=== PATIENT | male | born 1960 | race Caucasian/White ===

== ENCOUNTER 2016-12-08 07:03 | Emergency (ER) | payer BC ==
[2016-12-08] MEDS ORDERED: Albuterol/Ipratropium NEB.SOL* Albuterol 2.5 MG/Ipratropium 0.5 MG 3 ML INH ONE (07:38)
[2016-12-08] MEDS ORDERED: Albuterol HFA INHALER* 8 gm MDI INH ONE (07:38)
[2016-12-08] MEDS ORDERED: Albuterol 2.5 MG/3 ML NEB.SOL* (0.083%) ONE (07:55)
[2016-12-08] MEDS ORDERED: Ipratropium 0.5MG/2.5ML NEB* 0.5 MG/2.5 ML NEB.SOLN ONE (07:59)
[2016-12-08 09:00] VITALS: BP 123/78
--- NOTE | 2016-12-08 09:02 | RAD ---
INDICATION: Fever, cough and wheezing COMPARISON: Most recent chest xray is dated 07/31/07 TECHNIQUE: PA and lateral views of the chest were obtained. FINDINGS: The heart and mediastinum are normal in size and contour. There is persistent elevation of the left dylan-diaphragm, worse when compared to the most recent chest xray. There is mild adama-bronchial cuffing. Otherwise the lungs are grossly clear. There is no evidence of large pleural effusion. Visualized bones are normal for the patient's age. There is no radiographic evidence of free air beneath the diaphragm IMPRESSION: 1. Mild adama-bronchial cuffing can be seen with inflammatory lung disease. 2. Worsening elevation of the left hemidiaphragm relative to the 2007 chest xray.
--- NOTE | 2016-12-16 15:46 | UC ---
Josr Reeves Claudia, scribed for Diamond Bruce MD on 12/08/16 at 0734 . General HPI - HPI Summary HPI Summary: 56 year old male presents to the [facility] with multi-sx. Pt notes gradual onset of Sx for the past 1.5 weeks. Pt admits to sore throat today. Pt notes that he had a fever of about 99F and bad cough about a week ago but notes that the cough subsided about 2 -3 days ago. He denies ear ache. He notes that he lost his voice over the past 2 days which made him come in today. Pt also notes that his had the flu about 2 weeks ago. - History of Current Complaint Chief Complaint: UCRespiratory Stated Complaint: SORE THROAT,CONGEST,ACHES Hx Obtained From: Patient Onset/Duration: Gradual Onset Associated Signs & Symptoms: Positive: Other - Cough, Sore throat. Negative: Cough, Chest Pain, Fever - Allergy/Home Medications Allergies/Adverse Reactions: Allergies Allergy/AdvReac Type Severity Reaction Status Date / Time No Known Allergies Allergy Verified 06/01/16 07:22 PMH/Surg Hx/FS Hx/Imm Hx Previously Healthy: Yes Endocrine History Of: Denies: Diabetes, Thyroid Disease Cardiovascular History Of: Reports: Hypertension Denies: Cardiac Disorders Respiratory History Of: Denies: COPD, Asthma GI/ History Of: Denies: Ulcer - Surgical History Surgical History: Yes Surgery Procedure, Year, and Place: Multiple Leg , EYE SURGERY - Family History Known Family History: Positive: Cardiac Disease - father, at age 78, Diabetes - Father - Social History Occupation: Disabled Lives: With Family Alcohol Use: Occasionally Alcohol Amount: 2-3 max Substance Use Type: None Smoking Status (MU): Never Smoked Tobacco Household Exposure Type: Cigarettes - Immunization History Most Recent Influenza Vaccination: not recently Most Recent Tetanus Shot: unsure Review of Systems Constitutional: Other - No fever Skin: Negative Eyes: Negative ENT: Sore Throat Respiratory: Negative Cardiovascular: Negative Gastrointestinal: Negative Genitourinary: Negative Motor: Negative Neurovascular: Negative Musculoskeletal: Negative Neurological: Negative Psychological: Negative All Other Systems Reviewed And Are Negative: Yes Physical Exam Triage Information Reviewed: Yes Appearance: Well-Appearing - Not well-appearing, Well-Nourished Vital Signs: Initial Vital Signs Temp 98 F 12/08/16 07:08 Pulse 84 12/08/16 07:08 Resp 16 12/08/16 07:08 BP 130/82 12/08/16 07:08 Pulse Ox 98 12/08/16 07:08 Vital Signs Reviewed: Yes Eye Exam: Normal ENT Exam: Other - redness of the posterior pharynx with swelling of the uvula Neck exam: Normal Neck: Positive: Other: - No adenopathy appreciated Respiratory Exam: Normal, Other - Scattered expiratory wheezes Respiratory: Positive: Other: - No dyspena, no tachypnea, normal respiratory rate. Scattered expiratory wheezes throughout. Cardiovascular Exam: Normal Cardiovascular: Positive: RRR, No Murmur, Pulses Normal, Brisk Capillary Refill Abdominal Exam: Normal Abdomen Description: Positive: Nontender, No Organomegaly, Soft Bowel Sounds: Positive: Present Musculoskeletal Exam: Normal Musculoskeletal: Positive: Strength Intact Neurological Exam: Normal - Nonfocal, grossly intact Psychological Exam: Normal - Conversing easily and appropriately Diagnostics - Radiology CXR Xray Interpretation: Positive (See Comments) Radiology Interpretation Completed By: Radiologist Re-Evaluation - Re-Evaluation 1 Re-Evaluation Time: 08:45 Comment: Nurse went into pt room to tell pt that we are still awaiting a radiologist report on CXR and that the radiologist has been paged. 2 Re-Evaluation Time: 09:02 Comment: CXR results are dicussed with the pt. The pt is ready to be d/c home with follow-up instructions. Course/Dx - Course Course Of Treatment: No new problems in ccc, considered differential diagnoses. Feels better at d/c. see avs. reviewed need for f/u and to seek care if worse or new problems. - Differential Dx - Multi-Symptom Provider Diagnoses: Acute bronchitis with wheezing - Physician Notifications Discussed Patient Care With: Discussed results of CXR with Dr. Humphreys. Awaiting final dictation. Discharge - Discharge Plan Condition: Stable Disposition: HOME Prescriptions: Albuterol HFA INHALER* [Ventolin HFA Inhaler*] 1 - 2 puff INH Q6H PRN #1 mdi PRN Reason: Wheezing Azithromyxin ORTIZ (NF) [Z-Ortiz (Zithromax) 250 mg tabs #6] 2 tab PO .TODAY, THEN 1 DAILY #6 tab Patient Education Materials: Acute Bronchitis (ED), How to Use a Nebulizer (ED) , Wheezing (ED) Referrals: Onur Corbin MD [Primary Care Provider] - Additional Instructions: Follow up with Dr. Corbin - call tomorrow for appointment in the next 2 weeks. Please seek medical attention sooner for worse or new problems in the meantime. The documentation as recorded by the Josr lindsey Claudia accurately reflects the service I personally performed and the decisions made by me, Diamond Bruce MD.
== END 2016-12-08 09:10 | disposition home or self-care (01) ==
LOC: UCEAST 07:03
DX: J20.9 Acute bronchitis, unspecified (principal); Z77.22 Contact with and (suspected) exposure to environmental tobacco smoke (acute) (chronic)
CPT/HCPCS: 71020; 99213; A9270-GY; G0463; J7644

== ENCOUNTER 2017-07-16 14:13 | Emergency (ER) | payer BC ==
--- NOTE | 2017-07-16 14:32 | UC ---
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 - History of Current Complaint Stated Complaint: BACK PAIN Time Seen by Provider: 07/16/17 14:28 Hx Obtained From: Patient Onset/Duration: Sudden Onset Timing: Constant Severity Initially: Moderate Severity Currently: Moderate Pain Scale Used: 0-10 Numeric - 7 Character: Sharp Aggravating: Movement Alleviating: Rest Associated Signs And Symptoms: Positive: Negative - Risk Factors AAA Risk Factors: Negative TAD Risk Factors: Negative - Allergies/Home Medications Allergies/Adverse Reactions: Allergies Allergy/AdvReac Type Severity Reaction Status Date / Time No Known Allergies Allergy Verified 07/16/17 14:33 Home Medications: Home Medications Cyclobenzaprine TAB* [Flexeril 10 MG TAB*] 10 mg PO TID PRN 07/16/17 [History Confirmed 07/16/17] Naproxen [Naproxen 500 mg] 500 mg PO DAILY 07/16/17 [History Confirmed 07/16/17] PMH/Surg Hx/FS Hx/Imm Hx Previously Healthy: Yes - Surgical History Surgical History: Yes Surgery Procedure, Year, and Place: Multiple Leg , EYE SURGERY - Family History Known Family History: Positive: Cardiac Disease - father, at age 78, Diabetes - Father Family History: NON CONTRIBUTORY - Social History Alcohol Use: Occasionally Alcohol Amount: 2-3 max Substance Use Type: None Smoking Status (MU): Never Smoked Tobacco Household Exposure Type: Cigarettes - Immunization History Most Recent Influenza Vaccination: not recently Most Recent Tetanus Shot: unsure Review of Systems Constitutional: Negative Skin: Negative Eyes: Negative ENT: Negative Respiratory: Negative Cardiovascular: Negative Gastrointestinal: Negative Genitourinary: Negative Motor: Negative Neurovascular: Negative Musculoskeletal: Other: - LOWER BACK PAIN Neurological: Negative Psychological: Negative All Other Systems Reviewed And Are Negative: Yes Physical Exam Triage Information Reviewed: Yes Eye Exam: Normal ENT Exam: Normal Dental Exam: Normal Neck exam: Normal Neck: Positive: 1 Respiratory Exam: Normal Cardiovascular Exam: Normal Abdominal Exam: Normal Musculoskeletal: Positive: Other: - LOWER BACK PAIN Neurological Exam: Normal Psychological Exam: Normal Skin Exam: Normal Back Pain Course/Dx - Differential Dx/Diagnosis Provider Diagnoses: LOWER BACK SPASM Discharge - Discharge Plan Condition: Stable Disposition: HOME Prescriptions: Ibuprofen TAB* [Motrin TAB* 800 MG] 800 mg PO Q6H #30 tab Methocarbamol TAB* [Robaxin 500 MG TAB*] 500 mg PO TID PRN #30 tab PRN Reason: Spasms - Back Patient Education Materials: Acute Low Back Pain (ED) Referrals: Onur Corbin MD [Medical Doctor] -
[2017-07-16 14:33] VITALS: BP 144/97
== END 2017-07-16 15:00 | disposition home or self-care (01) ==
LOC: UCEAST 14:13
DX: M62.830 Muscle spasm of back (principal); X50.0XXA Overexertion from strenuous movement or load, initial encounter; Y92.9 Unspecified place or not applicable; Z77.22 Contact with and (suspected) exposure to environmental tobacco smoke (acute) (chronic)
CPT/HCPCS: 81003; 99212; G0463

== ENCOUNTER 2019-02-17 09:15 | Emergency (ER) | payer OTHER, BC ==
[2019-02-17 09:29] VITALS: BP 138/97
[2019-02-17 10:00] LABS: Influenza A Molecular NEGATIVE (Negative); Influenza B Molecular NEGATIVE (Negative)
--- NOTE | 2019-02-17 10:00 | UC ---
FLU HPI - HPI Summary HPI Summary: 58 yo male presents with sinus congestion and body aches for the last 3 days. He has been taking nyquill OTC with mild relief. Denies fever, chills, sore throat, cough, SOB. - History of Current Complaint Chief Complaint: UCGeneralIllness Stated Complaint: flu like symp Time Seen by Provider: 02/17/19 10:00 Hx Obtained From: Patient Onset/Duration: Gradual Onset Severity Currently: Moderate Severity Initially: Moderate Pain Intensity: 6 Pain Scale Used: 0-10 Numeric - Allergy/Home Medications Allergies/Adverse Reactions: Allergies Allergy/AdvReac Type Severity Reaction Status Date / Time No Known Allergies Allergy Verified 02/17/19 09:22 PMH/Surg Hx/FS Hx/Imm Hx Cardiovascular History: Hypertension Respiratory History: Asthma - Surgical History Surgical History: Yes Surgery Procedure, Year, and Place: Multiple BILATERAL LEG SURGERIES (~22) , 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 RIGHT FOOT FUSION. HERNIA REPAIR as a child - Family History Known Family History: Positive: Cardiac Disease - father, at age 78, Diabetes - Father Family History: NON CONTRIBUTORY - Social History Alcohol Use: Occasionally Alcohol Amount: 2-3 max Substance Use Type: None Smoking Status (MU): Never Smoked Tobacco Household Exposure Type: Cigarettes - Immunization History Most Recent Influenza Vaccination: not recently Most Recent Tetanus Shot: unsure Review of Systems All Other Systems Reviewed And Are Negative: Yes Constitutional: Positive: Other - Body aches Skin: Positive: Negative Eyes: Positive: Negative ENT: Positive: Nasal Discharge, Sinus Congestion Respiratory: Positive: Negative Cardiovascular: Positive: Negative Gastrointestinal: Positive: Negative Neurological: Positive: Negative Psychological: Positive: Negative Physical Exam - Summary Physical Exam Summary: GENERAL: NAD. WDWN. No pain distress. SKIN: No rashes, sores, lesions, or open wounds. HEENT: Head: AT/NC Eyes: EOM intact. Conjunctiva clear without inflammation or discharge. Ears: Hearing grossly normal. TMs intact, no bulging, erythema, or edema. Nose: Nasal mucosa pink and moist. NTTP maxillary and frontal sinus. Throat: Posterior oropharynx without exudates, erythema, or tonsillar enlargement. Uvula midline. NECK: Supple. Nontender. No lymphadenopathy. CHEST: CTAB. No r/r/w. No accessory muscle use. Breathing comfortably and in no distress. CV: RRR. Without m/r/g. Pulses intact. Cap refill <2seconds NEURO: Alert. PSYCH: Age appropriate behavior. Triage Information Reviewed: Yes Vital Signs: Initial Vital Signs Temp 98.5 F 02/17/19 09:24 Pulse 80 02/17/19 09:24 Resp 18 02/17/19 09:24 BP 138/97 02/17/19 09:24 Pulse Ox 98 02/17/19 09:24 Vital Signs Reviewed: Yes Flu Course/Dx - Course Course Of Treatment: Suspect viral illness. Advised to continue nyquill and try taking mucinex in addition. F/u if symptoms do not improve - Differential Dx/Diagnosis Provider Diagnosis: Viral syndrome Discharge - Sign-Out/Discharge Documenting (check all that apply): Patient Departure All imaging exams completed and their final reports reviewed: No Studies - Discharge Plan Condition: Stable Disposition: HOME Patient Education Materials: Viral Syndrome (ED) Referrals: Jemima Irwin MD [Primary Care Provider] - Additional Instructions: If you develop a fever, shortness of breath, chest pain, new or worsening symptoms - please call your PCP or go to the ED. 1) Please continue your over the counter medications and try taking mucinex as directed for your cold symptoms - Billing Disposition and Condition Condition: STABLE Disposition: Home
== END 2019-02-17 10:25 | disposition home or self-care (01) ==
LOC: UCEAST 09:15
DX: B34.9 Viral infection, unspecified (principal); I10 Essential (primary) hypertension; J45.909 Unspecified asthma, uncomplicated
CPT/HCPCS: 99211; G0463

== ENCOUNTER 2019-10-29 07:02 | Emergency (ER) | payer BC, OTHER ==
[2019-10-29 07:30] VITALS: BP 140/94
--- NOTE | 2019-10-29 07:43 | UC ---
Respiratory Complaint HPI - HPI Summary HPI Summary: 2 DAYS OF COUGH, CONGESTION AND FATIGUE. FEELS A BIT SHORT OF BREATH AND WHEEZY. HAS MILD HEADACHE AND BODY ACHES. NO FEVER, ST, NAUSEA/VOMITING. NO FLU SHOT THIS SEASON. HAS A HISTORY OF CEREBRAL PALSY AND STATES THAT HE HAS 1 WEAK LUNG. NOT SURE WHICH ONE. DENIES A HISTORY OF SMOKING BUT STATES HE EXPERIENCED A LOT OF SECONDHAND SMOKE GROWING UP. - History of Current Complaint Chief Complaint: UCGeneralIllness Stated Complaint: COUGH Time Seen by Provider: 10/29/19 07:19 Hx Obtained From: Patient Onset/Duration: Gradual Onset, Lasting Days, Still Present Timing: Constant Severity Initially: Moderate Severity Currently: Moderate Pain Intensity: 0 Pain Scale Used: 0-10 Numeric Character: Cough: Productive Aggravating Factors: Nothing Alleviating Factors: Nothing Associated Signs And Symptoms: Positive: Wheezing, URI, Nasal Congestion. 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 RIGHT FOOT FUSION. HERNIA REPAIR as a child - Family History Known Family History: Positive: Cardiac Disease - father, at age 78, Diabetes - Father Family History: NON CONTRIBUTORY - Social History Alcohol Use: Occasionally Alcohol Amount: 2-3 max Substance Use Type: None Smoking Status (MU): Never Smoked Tobacco Household Exposure Type: Cigarettes - Immunization History Most Recent Influenza Vaccination: not recently Most Recent Tetanus Shot: unsure Review of Systems All Other Systems Reviewed And Are Negative: Yes Constitutional: Positive: Fatigue ENT: Positive: Sore Throat, Nasal Discharge Respiratory: Positive: Shortness Of Breath, Cough, Other - WHEEZE Cardiovascular: Positive: Negative Gastrointestinal: Positive: Negative Musculoskeletal: Positive: Myalgia Neurological: Positive: Headache Physical Exam Triage Information Reviewed: Yes Appearance: Well-Appearing, No Pain Distress, Well-Nourished Vital Signs: Initial Vital Signs Temp 98.4 F 10/29/19 07:26 Pulse 110 10/29/19 07:26 Resp 22 10/29/19 07:26 BP 140/94 10/29/19 07:26 Pulse Ox 95 10/29/19 07:26 Laboratory Tests 10/29/19 07:38 Influenza A (Rapid) Negative Influenza B (Rapid) Negative Vital Signs Reviewed: Yes Eyes: Positive: Conjunctiva Clear ENT: Positive: Hearing grossly normal, Pharynx normal, TMs normal Neck: Positive: Supple, Nontender, No Lymphadenopathy Respiratory: Positive: No respiratory distress, No accessory muscle use, Decreased breath sounds - LEFT BASE, Wheezing - MILD WHEEZE RIGHT LUNG BASE Cardiovascular: Positive: Tachycardia Abdomen Description: Positive: Soft Musculoskeletal: Positive: No Edema Neurological: Positive: Alert Psychological: Positive: Age Appropriate Behavior Skin: Negative: Rashes Diagnostics - Radiology CXR Radiology Interpretation Completed By: Radiologist Summary of Radiographic Findings: STABLE ELEVATION OF THE LEFT HEMIDIAPHRAGM. Respiratory Course/Dx - Course Course Of Treatment: FLU NEGATIVE. CHEST X-RAY WITH STABLE ELEVATION OF THE LEFT HEMIDIAPHRAGM. NO ACUTE CARDIOPULMONARY DISEASE. LIKELY VIRAL RESPIRATORY INFECTION WHICH HAS TRIGGERED HIS COPD. ADVISED TO CONTINUE HIS ALBUTEROL PRESCRIBED. WILL GIVE A SHORT BURST OF PREDNISONE TO HELP WITH AIRWAY INFLAMMATION. NO INDICATION FOR ANTIBIOTICS TODAY. FOLLOW-UP IF NEEDED. - Differential Dx/Diagnosis Provider Diagnosis: COPD exacerbation Discharge ED - Sign-Out/Discharge Documenting (check all that apply): Patient Departure All imaging exams completed and their final reports reviewed: Yes - Discharge Plan Condition: Stable Disposition: HOME Prescriptions: predniSONE 20 mg TAB [Deltasone 20 MG TAB*] 40 mg PO DAILY #10 tab Patient Education Materials: COPD (Chronic Obstructive Pulmonary Disease) (ED) Forms: *Work Release Referrals: Jemima Irwin MD [Primary Care Provider] - If Needed Additional Instructions: FLU SWAB NEGATIVE. CHEST X-RAY SHOWED A STABLE ELEVATION OF THE LEFT HEMIDIAPHRAGM. SO YOU ALWAYS HAVE DIMINISHED LUNG SOUNDS IN THE LEFT LUNG BASE. YOUR SYMPTOMS ARE LIKELY VIRALLY MEDIATED AND MAY HAVE TRIGGERED A COPD EXACERBATION. NO INDICATION FOR ANTIBIOTICS AT PRESENT. REST, HYDRATE, OTC MEDS NEEDED. WILL TREAT WITH PREDNISONE TO HELP WITH AIRWAY INFLAMMATION. USE YOUR ALBUTEROL AT HOME PRESCRIBED. SEEK FOLLOW-UP IF YOU ARE NOT IMPROVING OVER THE NEXT 1-2 WEEKS. YOU MAY CALL ME HERE TOMORROW NIGHT OR Friday IF YOU HAVE ANY QUESTIONS OR CONCERNS ABOUT THE COURSE OF YOUR CONDITION. - Billing Disposition and Condition Condition: STABLE Disposition: Home
[2019-10-29 07:49] LABS: Influenza A Molecular NEGATIVE (Negative); Influenza B Molecular NEGATIVE (Negative)
== END 2019-10-29 08:30 | disposition home or self-care (01) ==
LOC: UCEAST 07:02
DX: J44.1 Chronic obstructive pulmonary disease with (acute) exacerbation (principal); I10 Essential (primary) hypertension; G80.9 Cerebral palsy, unspecified; R53.83 Other fatigue
CPT/HCPCS: 71046; 99212; G0463

== ENCOUNTER 2019-11-16 06:25 | Emergency (ER) | payer BC ==
[2019-11-16] MEDS ORDERED: NS 0.9% 1000 ML** 1,000 ML IV ONE (07:46)
[2019-11-16] MEDS ORDERED: Acetaminophen TAB* 325 MG PO ONE (07:46)
[2019-11-16] MEDS ORDERED: Albuterol/Ipratropium NEB.SOL* Albuterol 2.5 MG/Ipratropium 0.5 MG 3 ML INH ONE (07:46)
[2019-11-16 07:58] LABS: ABS Eosinophils 0.5 10^3/ul (0-0.6); ABS Lymphocytes 0.8 10^3/ul (1.0-4.8); ABS Monocytes 0.7 10^3/ul (0-0.8); Eosinophil % 7.6 %; Hematocrit 42 % (42-52); Hemoglobin 14.2 g/dL (14.0-18.0); Lymphocyte % 11.1 %; Mean Corpuscular HGB Conc 34 g/dL (31-36); Mean Corpuscular Hemoglobin 29 pg (27-31); Mean Corpuscular Volume 84 fL (80-94); Mean Platelet Volume 9.2 fL (7.4-10.4); Platelet Count 200 10^3/uL (150-450); Red Blood Count 4.93 10^6 /uL (4.18-5.48); Red Cell Distribution Width 14 % (10-15); White Blood Count 7.1 10^3/uL (3.5-10.8)
[2019-11-16 08:15] LABS: Albumin 4.1 g/dL (3.2-5.2); Albumin/Globulin Ratio 1.5 (1-3); BUN/Creatinine Ratio 30.4 (8-20); C Reactive Protein 7.59 mg/L (<8.01); Calcium 8.9 mg/dL (8.6-10.3); EGFR African American 122.3 (>60); EGFR Non-African American 101.1 (>60); Globulin 2.7 g/dL (2-4); Potassium 4.3 mmol/L (3.5-5.0); Total Bilirubin 0.3 mg/dL (0.2-1.0); Total Protein 6.8 g/dL (6.4-8.9)
[2019-11-16 09:16] LABS: Influenza A Molecular NEGATIVE (Negative); Influenza B Molecular NEGATIVE (Negative)
--- NOTE | 2019-11-16 09:43 | ED ---
Respiratory - HPI Summary HPI Summary: Patient is a 59-year-old male who presents emergency department for ongoing cough 2 weeks. Patient was seen at [facility] 2 weeks ago and had negative influenza and chest x-ray. Patient states cough has persisted with chest tightness, myalgias and generalized weakness. Past medical history of cerebral palsy. States his one month does not work as well as it should and notes mild COPD. Symptoms are moderate in severity. No current modifying factors. - History of Current Complaint Chief Complaint: EDUpperRespComplaint Stated Complaint: HAS A COLD WAS SEEN AT YESTERDAY PER PT Time Seen by Provider: 11/16/19 07:34 Hx Obtained From: Patient Pain Intensity: 2 Sputum Amount: None - Allergy/Home Medications Allergies/Adverse Reactions: Allergies Allergy/AdvReac Type Severity Reaction Status Date / Time No Known Allergies Allergy Verified 11/16/19 06:30 Home Medications: Home Medications Benzonatate CAP* [Tessalon 100 MG CAP*] 100 mg PO TID 11/16/19 [History Confirmed 11/16/19] Methocarbamol TAB* [Robaxin 500 MG TAB*] 500 mg PO DAILY 11/16/19 [History Confirmed 11/16/19] Metoprolol Succinate XL TAB* [Toprol XL TAB*] 25 mg PO DAILY 11/16/19 [History Confirmed 11/16/19] Naproxen TAB* [Naprosyn 250 mg TAB*] 500 mg PO DAILY 11/16/19 [History Confirmed 11/16/19] Nyquil 30 ml PO Q6H PRN 11/16/19 [History Confirmed 11/16/19] Pot Bicarb/Sod Bicarb/Cit AC [[place] Gold Tab Eff] 1 each PO DAILY PRN [History Confirmed 11/16/19] Saline NASAL SPRAY 0.65%* [Sodium Chloride 0.65% Nasal [place]*] 1 spray BOTH NARES .1-2X/DAY PRN 11/16/19 [History Confirmed 11/16/19] PMH/Surg Hx/FS Hx/Imm Hx Previously Healthy: Yes Endocrine/Hematology History: Denies: Hx Diabetes, Hx Thyroid Disease Cardiovascular History: Reports: Hx Hypertension Denies: Hx Pacemaker/ICD Respiratory History: Reports: Hx Chronic Obstructive Pulmonary Disease (COPD), Other Respiratory Problems/Disorders - SOB d/t diaphragm problems (seeing splicing supervisor for this) Denies: Hx Asthma GI History: Reports: Other GI Disorders - hiatal hernia Denies: Hx Ulcer History: Denies: Hx Renal Disease Musculoskeletal History: Reports: Hx Arthritis, Hx Back Problems, Other Musculoskeletal History - cerebral palsy Sensory History: Reports: Hx Contacts or Glasses Denies: Hx Hearing Aid Opthamlomology History: Reports: Hx Contacts or Glasses Neurological History: Reports: Other Neuro Impairments/Disorders - cerebral palsy Psychiatric History: Denies: Hx Panic Disorder - Surgical History Surgery Procedure, Year, and Place: Multiple BILATERAL LEG SURGERIES (~20) , 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 RIGHT FOOT FUSION. HERNIA REPAIR as a child Infectious Disease History: No Infectious Disease History: Denies: Hx Clostridium Difficile, Hx Hepatitis, Hx Human Immunodeficiency Virus (HIV), Hx of Known/Suspected MRSA, Hx Shingles, Hx Tuberculosis, Hx Known/ Suspected VRE, Hx Known/Suspected VRSA, History Other Infectious Disease, Traveled Outside the [place] in Last 30 Days - Family History Known Family History: Positive: Cardiac Disease - father, at age 78, Diabetes - Father, Non-Contributory Family History: NON CONTRIBUTORY - Social History Occupation: Retired Lives: With Family Alcohol Use: Occasionally Alcohol Amount: 2-3 max Substance Use Type: Reports: None Smoking Status (MU): Never Smoked Tobacco Review of Systems Constitutional: Negative Negative: Fever ENT: Negative Cardiovascular: Negative Positive: Shortness Of Breath, Cough Gastrointestinal: Negative Neurological: Negative All Other Systems Reviewed And Are Negative: Yes Physical Exam Triage Information Reviewed: Yes Vital Signs On Initial Exam: Initial Vitals Temp Pulse Resp BP Pulse Ox 98.6 F 110 16 134/99 98 11/16/19 06:28 11/16/19 06:28 11/16/19 06:28 11/16/19 06:28 11/16/19 06:28 Vital Signs Reviewed: Yes Appearance: Positive: Well-Appearing - Pt. sitting on side of bed in NAD. present. Skin: Positive: Warm, Dry Head/Face: Positive: Normal Head/Face Inspection Eyes: Positive: Normal, EOMI Neck: Positive: Supple Respiratory/Lung Sounds: Positive: Other - Diminished breath sounds throughout with mild extra wheezes. No accessory muscle use. Cardiovascular: Positive: Normal, RRR Neurological: Positive: Normal, CN Intact II-III Psychiatric: Positive: Affect/Mood Appropriate Procedures - Sedation Patient Received Moderate/Deep Sedation with Procedure: No Diagnostics - Vital Signs Vital Signs Temp Pulse Resp BP Pulse Ox 11/16/19 09:00 104 96 11/16/19 08:42 105 15 96 11/16/19 08:24 94 11/16/19 06:28 98.6 F 110 16 134/99 98 - Laboratory Lab Results: Lab Results 11/16/19 11/16/19 11/16/19 Range/Units 07:50 07:50 07:59 WBC 7.1 (3.5-10.8) 10^3/uL RBC 4.93 (4.18-5.48) 10^6 /uL Hgb 14.2 (14.0-18.0) g/dL Hct 42 (42-52) % MCV 84 (80-94) fL MCH 29 (27-31) pg MCHC 34 (31-36) g/dL RDW 14 (10-15) % Plt Count 200 (150-450) 10^3/uL MPV 9.2 (7.4-10.4) fL Neut % (Auto) 71.4 % Lymph % (Auto) 11.1 % [place] % (Auto) 9.5 % Eos % (Auto) 7.6 % Baso % (Auto) 0.4 % Absolute Neuts (auto) 5.0 (1.5-7.7) 10^3/ul Absolute Lymphs (auto) 0.8 L (1.0-4.8) 10^3/ul Absolute Monos (auto) 0.7 (0-0.8) 10^3/ul Absolute Eos (auto) 0.5 (0-0.6) 10^3/ul Absolute Basos (auto) 0.0 (0-0.2) 10^3/ul Absolute Nucleated RBC 0.0 10^3/ul Nucleated RBC % 0.0 Sodium 138 (135-145) mmol/L Potassium 4.3 (3.5-5.0) mmol/L Chloride 105 (101-111) mmol/L Carbon Dioxide 27 (22-32) mmol/L Anion Gap 6 (2-11) mmol/L BUN 24 (6-24) mg/dL Creatinine 0.79 (0.67-1.17) mg/dL Est GFR ( Amer) 122.3 (>60) Est GFR (Non-Af Amer) 101.1 (>60) BUN/Creatinine Ratio 30.4 H (8-20) Glucose 95 (70-100) mg/dL Calcium 8.9 (8.6-10.3) mg/dL Total Bilirubin 0.30 (0.2-1.0) mg/dL AST 19 (13-39) U/L ALT 20 (7-52) U/L Alkaline Phosphatase 74 (34-104) U/L Troponin I 0.00 (<0.03) ng/mL C-Reactive Protein 7.59 (<8.01) mg/L Total Protein 6.8 (6.4-8.9) g/dL Albumin 4.1 (3.2-5.2) g/dL Globulin 2.7 (2-4) g/dL Albumin/Globulin Ratio 1.5 (1-3) Influenza A (Rapid) Negative (Negative) Influenza B (Rapid) Negative (Negative) Result Diagrams: 11/16/19 07:50 11/16/19 07:50 Lab Statement: Any lab studies that have been ordered have been reviewed, and results considered in the medical decision making process. Disposition - Course Course Of Treatment: Patient with ongoing productive cough. He is afebrile. Mildly tachycardic. Oxygen saturation normal on room air. Patient is given a DuoNeb treatment liter of fluids for tachycardia. ECG done at 0901 shows a sinus rhythm of 98bpm, normal axis, no st changes. Labs are unremarkable. Chest x-ray showing questionable consolidation versus atelectasis to left lobe per radiology. Given patient's symptoms and exam we'll treat for likely pneumonia with azithromycin. Patient follow-up with PCP within one week. To continue albuterol nebs every 6 hours. Return to the er if symptoms change or worsen. Patient understands and agrees with plan. - Differential Dx - Cardiopulmonary Differential Diagnoses - Cardiopulmonary: CAD, Influenza - Diagnoses Provider Diagnoses: Pneumonia Discharge ED - Sign-Out/Discharge Documenting (check all that apply): Patient Departure - Discharge Plan Condition: Improved Disposition: HOME Prescriptions: Albuterol/Ipratropium NEB.MAIKEL* [Duoneb (Albuterol 2.5 MG/Ipratropium 0.5 MG)] 1 neb INH Q6H PRN #30 neb.maikel PRN Reason: Wheezing Azithromycin TAB* [Zithromax TAB (Z-EIL) 250 mg #6 tabs] 2 tab PO .TODAY, THEN 1 DAILY #1 eli Patient Education Materials: Bacterial Pneumonia (ED) Referrals: Jemima Irwin MD [Primary Care Provider] - Additional Instructions: Follow up with PCP within one week for recheck Take antibiotic as directed Breathing treatments every 6 hours Tylenol or Motrin for pain as directed Return to ER if symptoms change or worsen - Billing Disposition and Condition Condition: IMPROVED Disposition: Home - Attestation Statements Provider Attestation: I was available for consultation for this patient. I did not evaluate the patient or participate in any medical decision making or disposition decisions unless I am specifically named in the chart as having consulted on the patient. If I have consulted on the patient, please see my own ED note on the patient encounter. Rosalba Knox MD
[2019-11-16 10:10] VITALS: BP 138/94
== END 2019-11-16 10:09 | disposition home or self-care (01) ==
LOC: ED 06:25
DX: J18.9 Pneumonia, unspecified organism (principal); R06.02 Shortness of breath
CPT/HCPCS: 36415; 71046; 80053; 84484; 85025; 86140; 93005; 96360; 99283; A9270-GY